=== PATIENT | female | born 1990 | race Caucasian/White ===

== ENCOUNTER 2025-01-26 16:50 | Emergency (ER) | payer MEDICAID, SELFPAY ==
[2025-01-26 17:40] VITALS: BP 107/73; PULSE 94; RESP 18; TEMP 37.3; O2SAT 95; BMI 25.7
--- NOTE | 2025-01-26 18:32 | XR_ITS ---
Examination: CT maxillofacial, without intravenous contrast. 2-D sagittal reconstructions. 3-D reconstructions. Date and time of exam:January 26, 20252006 hours INDICATION: Seizure today patient fell with injury of the face, facial pain CTDI: vol (mGy):21 DLP: (mGycm):344 Technique: Multiple axial images of maxillofacial region, 3.0 mm slice thickness. 2-D sagittal and coronal reconstructions. 3-D reconstructions. Low dose protocols were performed. One or more of the following dose reduction techniques were used; automated exposure control, adjustment of the mA and/or KV according to patient size, use of iterative reconstruction technique. Findings: Frontal bone frontal sinuses intact Orbital rims intact No nasal bone fracture. No depression zygomatic arches. Maxilla and mandible are intact IMPRESSION: No acute fracture.
--- NOTE | 2025-01-26 18:32 | XR_ITS ---
Examination: CT brain head without contrast. 2-D sagittal coronal reconstructions Date and time of exam:January 26, 20252001 hours INDICATIONS: Seizure today with injury to the face, head pain and facial pain CTDI: vol (mGy):47 DLP: (mGycm):959 Technique: Multiple CT axial sections of the brain have been obtained, 5 mm slice thickness. Contrast has not been administered. 2-D sagittal, coronal reconstructions have been obtained Low dose protocols were performed. One or more of the following dose reduction techniques were used; automated exposure control, adjustment of the mA and/or KV according to patient size, use of iterative reconstruction technique. Findings: No significant ventricular enlargement. Intra-axial or extra-axial hemorrhage density is not seen. No mass effect or midline shift Basal cisterns are not remarkable. Fourth ventricle is midline. Cranial vault intact. Impression: Negative for acute hemorrhage, mass effect or midline shift
--- NOTE | 2025-01-26 18:33 | PD.EDRME ---
Rapid Medical Screening Exam [facility] Arrival date/time: 01/26/25 16:50 34F with no significant PMH presents to ED with 2 seizures today lasting about 5 min each time. Patient has been taking her Lamictal as prescribed. Patient fell and hit her face on the stove. Patient still feels out of it. Chief Complaint: Seizure Vital signs: Vital Signs Temperature 99.2 F 01/26/25 17:40 Pulse Rate 94 01/26/25 17:40 Respiratory Rate 18 01/26/25 17:40 Blood Pressure 107/73 01/26/25 17:40 Pulse Oximetry (%) 95 01/26/25 17:40 Oxygen Delivery Method Room Air 01/26/25 17:40
[2025-01-26 18:50] LABS: Lactate (Lactic Acid) 0.6 mMol/L (0.4-2.0)
[2025-01-26 18:58] LABS: Basophils # (Auto) 0.1 Thou/mm3 (0.0-0.2); Basophils % (Auto) 1 % (0-2.5); Eosinophils # (Auto) 0.2 Thou/mm3 (0.0-0.5); Eosinophils % (Auto) 2 % (0-10); Hematocrit 40.2 % (36.0-46.0); Hemoglobin 13.2 g/dL (12.0-16.0); Immature Granulocytes Auto 0.02 Thou/mm3 (0.00-0.00); Lymphocytes # (Auto) 2.8 Thou/mm3 (1.0-4.8); Lymphocytes % (Auto) 27 % (10-50); Mean Corpuscular HGB Conc 32.8 g/dl (31.0-37.0); Mean Corpuscular Hemoglobin 29.8 pg (25.0-35.0); Mean Corpuscular Volume 91 fL (80-100); Monocytes # (Auto) 0.5 Thou/mm3 (0.0-0.8); Monocytes % (Auto) 5 % (0-12); Neutrophils # (Auto) 6.7 Thou/mm3 (1.8-7.7); Neutrophils % (Auto) 65 % (37-80); Nucleated Red Blood Cell # 0.00 Thou/mm3 (0.00-0.00); Nucleated Red Blood Cell % 0 /100 WBC (0); Platelet Count 259 Thou/mm3 (140-440); RDW Standard Deviation 45.8 fL (36.4-46.3); Red Blood Count 4.43 Miln/mm3 (4.00-5.20); White Blood Count 10.2 Thou/mm3 (3.6-11.0)
[2025-01-26 19:14] LABS: Alanine Aminotransferase < 7 U/L (10-49); Albumin, Serum 4.5 gm/dL (3.5-5.0); Albumin/Globulin Ratio 1.9 (1.2-2.2); Alcohol, Blood Medical < 3.0 mg/dL (0-10.0); Alkaline Phosphatase 61 U/L (46-116); Anion Gap 5 (7-16); Aspartate Amino Transferase 13 U/L (0-34); BUN/Creatinine Ratio 8 Ratio (12-20); Bilirubin,Total < 0.2 mg/dL (0.3-1.2); Blood Urea Nitrogen 6 mg/dL (9-23); Calcium 9.9 mg/dL (8.3-10.6); Calcium (Corrected) 9.9 mg/dL (8.5-10.1); Carbon Dioxide 28.8 mMol/L (20.0-31.0); Chloride 109 mMol/L (98-107); Creatinine (Component) 0.8 mg/dL (0.6-1.3); Estimated Creatinine Clearance 91.2 mL/min (>60); Globulin 2.4 gm/dL (2.3-3.5); Glucose 104 mg/dL (74-106); Osmolality,Calculated 282 (275-295); Potassium 4.1 mMol/L (3.4-5.1); Sodium 143 mMol/L (136-145); Total Protein 6.9 gm/dL (5.7-8.2); eGFR > 60 See Note
[2025-01-26 19:40] LABS: Collection Type, Urine Clean Catch; RBC,Urine 0 /hpf (0-3); WBC,Urine 0 /hpf (0-5)
[2025-01-26 20:04] LABS: Bilirubin,Urine Negative (Negative); Blood,Urine Negative (Negative); Clarity,Urine Turbid (Clear/Hazy); Color,Urine Yellow (Lt Yel-Yel); Culture Indicated,Urine Not Indicated; Glucose, Urine Negative (Negative); Hyaline Casts,Urine < 1 /hpf (0-1); Ketones,Urine Trace (Negative); Leukocyte Esterase,Urine Negative (Negative); Nitrite,Urine Negative (Negative); PH,Urine 6.0 (5.0-7.0); Protein,Urine Trace (Neg - Trace); Specific Gravity,Urine 1.024 (1.001-1.035); Squamous Epithelial Cell,Urine 10 /hpf (0-5); Urobilinogen,Urine Negative mg/dL (0.0-1.0)
[2025-01-26 20:12] LABS: HCG Qualitative,Urine Negative
[2025-01-26 21:15] LABS: Amphetamine/Methamp Scrn,U Negative (Negative); Barbiturate Screen,Urine Negative (Negative); Benzodiazepines Screen,Urine Negative (Negative); Benzoylecgonine Screen, Ur Negative (Negative); Fentanyl Screen,Urine Negative (Negative); Opiate Screen,Urine Positive (Negative); THC Screen,Urine Positive (Negative)
[2025-01-26 22:34] VITALS: BP 129/85; PULSE 57; RESP 18; TEMP 36.7; O2SAT 97
--- NOTE | 2025-01-26 22:57 | PD.EDADULT ---
ED General RME/HPI General Chief complaint: Seizure Stated complaint: SEIZURE Arrival date/time: 01/26/25 16:50 RME / HPI RME / HPI narrative: 01/26/25 16:50 34F with no significant PMH presents to ED with 2 seizures today lasting about 5 min each time. Patient has been taking her Lamictal as prescribed. Patient fell and hit her face on the stove. Patient still feels out of it. 34-year-old female with past medical history of seizures currently on Lamictal comes into the ED with chief complaint of seizure-like activity twice today. Patient states that she had 2 episodes of seizures with the first 1 lasting around 5 minutes and the second 1 lasting a little bit last. Patient seizure-like activity was witnessed by the patient's who found her on the floor and patient did hit her left side temporal area. Patient mentions she did have urinary incontinence, but no bowel incontinence. Patient also states that she does have some body pain, but otherwise denies having any chest pain, shortness of breath, nausea, vomiting, change in bowel mood, burning sensation during urination, or any previous seizures prior to today. She states that she has not been hydrating herself too well. Patient mentioned that her primary care physician that increased her Lamictal dose around 6 months ago, but she is unaware of what the reason was. Patient has not seen the neurologist for 1 year. Otherwise no other complaints. Admits marijuana use, denies any smoking cigarettes or alcohol or other illicit drugs Related Data Home Medications ?Medication ?Instructions ?Recorded ?Confirmed tramadol 50 mg tablet 50 mg PO BID 04/08/21 04/08/21 Previous Rx's ?Medication ?Instructions ?Recorded azithromycin 250 mg tablet See Rx Instructions PO .COMPLEX #6 04/08/21 tabs cyclobenzaprine 10 mg tablet 10 mg PO TID #10 tabs 06/06/21 meloxicam 7.5 mg tablet 7.5 mg PO QDAY #10 tabs 06/06/21 ciprofloxacin HCl 500 mg tablet 500 mg PO Q12H #14 tabs 02/01/22 (Cipro) Allergies Allergy/AdvReac Type Severity Reaction Status Date / Time cyclobenzaprine (From Allergy Severe Anaphylaxis Verified 02/01/22 19:32 Flexeril) metoclopramide HCl Allergy Severe THROAT Verified 02/01/22 19:32 CLOSES ondansetron Allergy Severe RASH,VOMITI Verified 02/01/22 19:32 NG,FEVER Penicillins Allergy Mild Rash Verified 02/01/22 19:32 promethazine (From Phenergan) Allergy Mild Vomiting Verified 02/01/22 19:32 Review of Systems Review of Systems Systems Reviewed: All systems reviewed, normal except as documented Past Medical History Past Medical History NEUROLOGIC: Positive Neurological Disorders, Seizures, Spina Bifida, Migraine and Head Trauma CARDIAC: Negative Cardiac Disorders or Congestive Heart Failure RESPIRATORY: Negative Chronic Obstructive Pulmonary Disease (COPD) GASTROINTESTINAL: Negative Gastrointestinal Disorders GENITOURINARY: Positive Genitourinary Disorders; Negative Renal Disease REPRODUCTIVE: Positive Previous Pregnancies MUSCULOSKELETAL: Positive Musculoskeletal Disorders ENT: Positive Head Trauma ENDOCRINE: Negative Endocrine Disorders, Diabetes Mellitus Type 1 or Diabetes Mellitus Type 2 HEMATOLOGIC: Negative Blood Disorders OTHER HISTORY: Positive Chicken Pox; Negative Hospitalization, Autoimmune Disease, Shingles, Falls, Blood Transfusions, Blood Transfusion Reaction, Anesthesia Reactions, Chemotherapy, Radiation Therapy, MRSA or Cancer Family History FAMILY HISTORY: Positive Family Psychiatric Problems, Family Respiratory Disorders, Family Cardiac Disorders, Family Gastrointestinal Problems, Family Cancer and Family Surgery; Negative Family Anesthesia Reaction Surgical History SURGICAL: Positive Abdominal Surgery and Tubal Ligation; Negative Cardiac Surgery, Ear Surgery, Nephrectomy or Joint Replacement Social History SMOKING STATUS: Light (< 1 pack/day) SUBSTANCE USE: marijuana Travel History EBOLA RISK: No ED Exam Narrative Physical exam: Gen: A&O X 3, NAD HEENT: NCAT, EOMI, Pupils reactive JAY, not icteric. External ears normal. No rhinorrhea. Moist mucous membranes. No tongue bitting. Neck: Supple, full range of motion, no observable masses, No meningeal sign. Lungs: No Respiratory distress, clear bilateral. CV: RRR, no murmurs. Abdomen: Soft, nondistended, No rebound tenderness. MSK: No joint swelling, no redness, peripheral pulses presents, lumbar with no edema. Skin: No rashes, petechiae, lesions.. Neuro: No focal neurological deficits appreciated, sensory and motor intact. Psych: Cooperative, appropriate mood and effect. Course Quality Measures none Orders Category Date Time Status CT facial bones wo con Stat Exams 01/26/25 18:[address] head/brain wo con Stat Exams 01/26/25 18:32 Completed Alcohol, Blood Medical Stat Lab 01/26/25 18:42 Completed CBC Stat Lab 01/26/25 18:42 Completed CMP [Comprehensive Metabolic Panel] Stat Lab 01/26/25 18:42 Completed Drug Screen,Urine Stat Lab 01/26/25 19:21 Completed HCG Qualitative,Urine Stat Lab 01/26/25 19:21 Completed Lactate (Lactic Acid) Stat Lab 01/26/25 18:42 Completed Urinalysis, C/S if Indicated Stat Lab 01/26/25 19:21 Completed Ketorolac Inj [Toradol Inj] Med 01/26/25 22:54 Discontinued 30 mg IM X1 ONE Vital Signs Vital signs: Vital Signs Temperature 99.2 F 01/26/25 17:40 Pulse Rate 94 01/26/25 17:40 Respiratory Rate 18 01/26/25 17:40 Blood Pressure 107/73 01/26/25 17:40 Pulse Oximetry (%) 95 01/26/25 17:40 Oxygen Delivery Method Room Air 01/26/25 17:40 Discharge Plan Plan Patient Disposition: HOME (Self Care) Prescriptions/Referrals Prescriptions/Med Rec: No Action ciprofloxacin HCl [Cipro] 500 mg tablet 500 mg PO Q12H Qty: 14 0RF tramadol 50 mg Tablet 50 mg PO BID azithromycin 250 mg tablet See Rx Instructions .ROUTE .COMPLEX Qty: 6 0RF Rx Instructions: take 500 mg today (day 1), then 250 mg for 4 days (days 2-5) meloxicam 7.5 mg tablet 7.5 mg PO QDAY Qty: 10 0RF cyclobenzaprine 10 mg tablet 10 mg PO TID Qty: 10 0RF Referrals: No Primary/Family,Physician [Primary Care Provider] - In 1 week Problem List Clinical Impression: Seizure Patient/Caregiver Discharge Instructions Other Activity Instructions:: Follow-up primary care physician within the next 1 to 2 days Follow-up with your neurologist within the next 2 or 3 days Recommend to continue taking your same dose Lamictal for now. Would recommend to keep well-hydrated at all times Recommend to decrease marijuana use Come back to the ED if seizure recur, symptoms persist or worsen. Education Materials: ED Seizure, Recurrent (Adult) Print Language: Mauritian Stand Alone Forms: Britt Award Info., Patient Portal Info Letter MDM Narrative MDM hospital course: Patient was seen and evaluated upon arrival to the room by myself. Diagnostic labs and imaging were reviewed prior to discussing with the patient. Patient's urine drug screen was positive for opiates and marijuana, this could have decreased patient's seizure threshold as well as patient has not been hydrating well. Otherwise head CT and facial CT were unremarkable and did not show any fractures or intracranial hemorrhage. At this time we will discharge patient back home with close follow-up with primary care physician and neurologist and on the same dose of Lamictal. Patient agrees with plan. Case disclosed with Attending Dr. Giovanni Norman PGY2 Disclaimer: Even though this this note was dictated by speech recognition and even though it was carefully revised there may still be minor errors in artificial snow making machine operator due to voice recognition software. Medication Administration(s) Medication Administration History Discontinued Medications Ketorolac Tromethamine (Ketorolac Inj 60 Mg/2 Ml Vial) 30 mg IM X1 ONE Stop: 01/26/25 22:55 Last Admin: 01/26/25 23:06 Dose: 30 mg
[2025-01-26] MEDS: KETOROLAC INJ 60 MG/2 ML VIAL 30 MG IM (23:06)
== END 2025-01-26 23:10 | disposition home or self-care (01) ==
PROVIDERS: Physician Assistant; Emergency Provider Emergency Medicine
DX: R56.9 Unspecified convulsions (principal)
CPT/HCPCS: 36415; 70450; 70486; 80053; 80307; 80320; 81001; 81025; 83605; 85025; 96372; 99283; J1885; G0480

== ENCOUNTER 2025-01-28 10:17 | Emergency (ER) | payer MEDICAID, SELFPAY ==
[2025-01-28 10:18] VITALS: BMI 24.3
[2025-01-28 10:39] VITALS: BP 122/75; PULSE 57; RESP 18; TEMP 36.8; O2SAT 96
--- NOTE | 2025-01-28 10:52 | PD.EDADULT ---
ED General RME/HPI General Chief complaint: Extremity Problem,Nontraumatic Stated complaint: SPIDER BITE TO RIGHT POSTERIOR LEG Time Seen by Provider: 01/28/25 10:47 Arrival date/time: 01/28/25 10:17 CC: The pain to the right leg HPI ongoing for the past 2 days, patient states she thinks she was bit by a spider the back of the leg denies numbness or tingling fever chills nausea vomiting patient states she has ring of ecchymosis in various stages of resolution. Patient has a history of seizure disorder and had multiple seizures at the time of the incident. Patient denies any other symptoms no OTC medicines taken for it. Related Data Home Medications ?Medication ?Instructions ?Recorded ?Confirmed tramadol 50 mg tablet 50 mg PO BID 04/08/21 04/08/21 Previous Rx's ?Medication ?Instructions ?Recorded azithromycin 250 mg tablet See Rx Instructions PO .COMPLEX #6 04/08/21 tabs cyclobenzaprine 10 mg tablet 10 mg PO TID #10 tabs 06/06/21 meloxicam 7.5 mg tablet 7.5 mg PO QDAY #10 tabs 06/06/21 ciprofloxacin HCl 500 mg tablet 500 mg PO Q12H #14 tabs 02/01/22 (Cipro) Allergies Allergy/AdvReac Type Severity Reaction Status Date / Time cyclobenzaprine (From Allergy Severe Anaphylaxis Verified 01/28/25 10:18 Flexeril) metoclopramide HCl Allergy Severe THROAT Verified 01/28/25 10:18 CLOSES ondansetron Allergy Severe RASH,VOMITI Verified 01/28/25 10:18 NG,FEVER Penicillins Allergy Mild Rash Verified 01/28/25 10:18 promethazine (From Phenergan) Allergy Mild Vomiting Verified 01/28/25 10:18 Review of Systems Review of Systems Narrative Review of Systems: GEN: No fever, no chills, no weight loss EYES: No discharge, no visual changes, no pain HEENT: No ear pain, no congestion, no sore throat PULM: No shortness of breath, no cough, no congestion CV: No chest pain, no dyspnea on exertion, no palpitations GI: No nausea, no vomiting, no diarrhea, no pain, no constipation : No frequency, no urgency, no dysuria MUSC/SKEL: No joint pain, no back pain SKIN: Ecchymosis ring to the back of the leg no rash PSYCH: No hallucinations, no depression HEME/LYMPH: No easy bleeding or bruising tendencies NEURO: No weakness, no headache ED Exam Narrative Physical exam: [General: Not in any acute distress Head normocephalic HEENT: Within acceptable limits Neck is supple nontender Chest equal chest rise nontender to palpation Respiratory: Clear to auscultation no wheezes crackles or rubs CV: Rate rhythm is regular no murmurs rubs or clicks Abdomen is soft nontender no masses positive bowel sounds all 4 quadrants Back: No CVA tenderness no spinous process tenderness from cervical spine thoracic and lumbar spine Skin: Small puncture site to the calf of the right leg with a circular ecchymotic region around it in stages of resolution. No streaking or erythema. Intact no petechiae rash induration ulceration or crepitus Extremities: Moving all extremity against resistance cap refill less than 2 seconds neurosensory intact Neuro: Awake alert oriented x3 Glascow coma 15 no focal deficits] Course Quality Measures none Vital Signs Vital signs: Vital Signs Temperature 98.2 F 01/28/25 10:39 Pulse Rate 57 L 01/28/25 10:39 Respiratory Rate 18 01/28/25 10:39 Blood Pressure 122/75 01/28/25 10:39 Pulse Oximetry (%) 96 01/28/25 10:39 Oxygen Delivery Method Room Air 01/28/25 10:39 Discharge Plan Plan Patient Disposition: HOME (Self Care) Patient condition on transfer: Stable Prescriptions/Referrals Prescriptions/Med Rec: No Action ciprofloxacin HCl [Cipro] 500 mg tablet 500 mg PO Q12H Qty: 14 0RF tramadol 50 mg Tablet 50 mg PO BID azithromycin 250 mg tablet See Rx Instructions .ROUTE .COMPLEX Qty: 6 0RF Rx Instructions: take 500 mg today (day 1), then 250 mg for 4 days (days 2-5) meloxicam 7.5 mg tablet 7.5 mg PO QDAY Qty: 10 0RF cyclobenzaprine 10 mg tablet 10 mg PO TID Qty: 10 0RF Referrals: Art Gillis MD [Physician] - In 1 week Problem List Clinical Impression: Insect bite Patient/Caregiver Discharge Instructions Education Materials: ED Insect Bite Print Language: Vietnamese Stand Alone Forms: Britt Award Info., Work/School Release, Patient Portal Info Letter PA/MATERIAL ENGINEER Supervising Physician PA/MATERIAL ENGINEER Supervising Physician: Collins El ENP
== END 2025-01-28 11:20 | disposition home or self-care (01) ==
LOC: SERX 11:02
PROVIDERS: Emergency Provider Family Medicine; PCP Pediatrics
DX: S80.861A Insect bite (nonvenomous), right lower leg, initial encounter (principal); W57.XXXA Bitten or stung by nonvenomous insect and other nonvenomous arthropods, initial encounter
CPT/HCPCS: 99282

== ENCOUNTER 2025-02-10 19:46 | Emergency (ER) | payer MEDICAID, SELFPAY ==
[2025-02-10 19:49] VITALS: BMI 24.3
--- NOTE | 2025-02-10 20:21 | PC.NURSE ---
called for pt from lobby/outside, no answerx1@ 2016
--- NOTE | 2025-02-10 20:29 | PC.NURSE ---
CALLED FOR PT FROM LOBBY/OUTSIDE, NO ANSWERX2 @[phone]
--- NOTE | 2025-02-10 21:06 | PC.NURSE ---
CALLED FOR PT FROM LOBBY/OUTSIDE, NO ANSWERX3@ [phone]
== END 2025-02-10 21:31 | disposition left against medical advice (07) ==
LOC: SERX 20:47
PROVIDERS: Emergency Provider Emergency Medicine
DX: Z53.21 Procedure and treatment not carried out due to patient leaving prior to being seen by health care provider (principal)
CPT/HCPCS: 99281

== ENCOUNTER 2025-02-21 13:02 | Emergency (ER) | payer MEDICAID, SELFPAY ==
[2025-02-21 13:25] VITALS: BP 106/69; PULSE 107; RESP 16; TEMP 36.7; O2SAT 97
--- NOTE | 2025-02-21 13:35 | XR_ITS ---
Examination: CT abdomen with intravenous contrast CT pelvis with intravenous contrast 2-D coronal reconstructions 2-D sagittal reconstructions Date and time of exam:February 21, 2025 1536 hours, comparison 03/10/2022 INDICATIONS: Rectal pain today, pain and swelling around the vagina one week. CTDI: vol (mGy) 6.97 DLP: (mGycm) 402 Technique: Multiple axial sections of the abdomen and pelvis have been obtained. 64 slice high-resolution scanner used. 3 mm axial sections have been obtained, post intravenous injection 60 cc [id number] 2-D sagittal, coronal reconstructions obtained. Low dose protocols were performed. One or more of the following dose reduction techniques were used; automated exposure control, adjustment of the mA and/or KV according to patient size, use of iterative reconstruction technique. Findings: No focal liver or splenic lesion Contracted gallbladder No pancreatic or adrenal mass No renal or ureteral calculi, no hydronephrosis Aorta normal size Normal appendix No bowel obstruction No diverticulitis Absent uterus No bladder mass or bladder calculi Inflammation in the perineal region with tiny air densities, best seen on sagittal image 81 and coronal image 47 measuring 4.3 x 2.4 cm IMPRESSION: Infectious mass in the perineal region, 4.3 x 2.4 cm, recommend pelvic sonography follow-up
--- NOTE | 2025-02-21 13:36 | PD.EDRME ---
Rapid Medical Screening Exam RME Arrival date/time: 02/21/25 13:02 34-year-old female with no known medical history presents to the emergency room with a chief complaint of an abscess between the vagina and the rectum x 1 week I have greeted and performed a focused initial assessment of this patient. A comprehensive ED assessment and evaluation of the patient, analysis of all test results, and completion of the medical decision making process will be conducted by additional ED providers. Chief Complaint: Skin/Abscess/Foreign Body Time Seen by Provider: 02/21/25 13:24 Vital signs: Vital Signs Temperature 98.0 F 02/21/25 13:25 Pulse Rate 107 H 02/21/25 13:25 Respiratory Rate 16 02/21/25 13:25 Blood Pressure 106/69 02/21/25 13:25 Pulse Oximetry (%) 97 02/21/25 13:25 Oxygen Delivery Method Room Air 02/21/25 13:25 Vital signs reviewed by provider: Yes
[2025-02-21 14:41] LABS: Basophils # (Auto) 0.1 Thou/mm3 (0.0-0.2); Basophils % (Auto) 1 % (0-2.5); Eosinophils # (Auto) 0.3 Thou/mm3 (0.0-0.5); Eosinophils % (Auto) 3 % (0-10); Hematocrit 39.0 % (36.0-46.0); Hemoglobin 13.1 g/dL (12.0-16.0); Immature Granulocytes Auto 0.02 Thou/mm3 (0.00-0.00); Lymphocytes # (Auto) 3.5 Thou/mm3 (1.0-4.8); Lymphocytes % (Auto) 36 % (10-50); Mean Corpuscular HGB Conc 33.6 g/dl (31.0-37.0); Mean Corpuscular Hemoglobin 30.5 pg (25.0-35.0); Mean Corpuscular Volume 91 fL (80-100); Monocytes # (Auto) 0.6 Thou/mm3 (0.0-0.8); Monocytes % (Auto) 6 % (0-12); Neutrophils # (Auto) 5.3 Thou/mm3 (1.8-7.7); Neutrophils % (Auto) 55 % (37-80); Nucleated Red Blood Cell # 0.00 Thou/mm3 (0.00-0.00); Nucleated Red Blood Cell % 0 /100 WBC (0); Platelet Count 253 Thou/mm3 (140-440); RDW Standard Deviation 45.9 fL (36.4-46.3); Red Blood Count 4.29 Miln/mm3 (4.00-5.20); White Blood Count 9.8 Thou/mm3 (3.6-11.0)
[2025-02-21 14:49] LABS: HCG,Qualitative Serum Negative
[2025-02-21 14:55] LABS: Alanine Aminotransferase < 7 U/L (10-49); Albumin, Serum 4.1 gm/dL (3.5-5.0); Albumin/Globulin Ratio 1.7 (1.2-2.2); Alkaline Phosphatase 65 U/L (46-116); Anion Gap 9 (7-16); Aspartate Amino Transferase 11 U/L (0-34); BUN/Creatinine Ratio 9 Ratio (12-20); Bilirubin,Total 0.2 mg/dL (0.3-1.2); Blood Urea Nitrogen 7 mg/dL (9-23); Calcium 9.5 mg/dL (8.3-10.6); Calcium (Corrected) 9.5 mg/dL (8.5-10.1); Carbon Dioxide 30.6 mMol/L (20.0-31.0); Chloride 105 mMol/L (98-107); Creatinine (Component) 0.8 mg/dL (0.6-1.3); Estimated Creatinine Clearance 82.7 mL/min (>60); Globulin 2.4 gm/dL (2.3-3.5); Glucose 84 mg/dL (74-106); Lipase 34 U/L (12-53); Osmolality,Calculated 285 (275-295); Potassium 3.6 mMol/L (3.4-5.1); Sodium 145 mMol/L (136-145); Total Protein 6.5 gm/dL (5.7-8.2); eGFR > 60 See Note
--- NOTE | 2025-02-21 15:10 | PC.NURSE ---
CT placed senior technical trainer informed [id number]
[2025-02-21] MEDS: HYDROcodone/APAP 5/325 TABLET 1 TAB PO (15:11)
--- NOTE | 2025-02-21 16:54 | EDNOTE_ITS ---
ED General RME/HPI General Chief complaint: Skin/Abscess/Foreign Body Stated complaint: ABSCESS BETWEEN VAGINA & RECTUM Time Seen by Provider: 02/21/25 13:24 Arrival date/time: 02/21/25 13:02 CC: Left rectal and NEEMA area pain HPI ongoing for 1 week denies fever chills shortness of breath. Sexually active denies any vaginal discharge painful urination bloody urination diarrhea or constipation. No prior history of similar events. Patient states she had a hysterectomy in March 2024. Patient is awake alert oriented nontoxic-appearing in mild discomfort but not in any acute distress. RME / HPI RME / HPI narrative: 02/21/25 13:02 34-year-old female with no known medical history presents to the emergency room with a chief complaint of an abscess between the vagina and the rectum x 1 week I have greeted and performed a focused initial assessment of this patient. A comprehensive ED assessment and evaluation of the patient, analysis of all test results, and completion of the medical decision making process will be conducted by additional ED providers. Related Data Home Medications ?Medication ?Instructions ?Recorded ?Confirmed tramadol 50 mg tablet 50 mg PO BID 04/08/21 Previous Rx's ?Medication ?Instructions ?Recorded azithromycin 250 mg tablet See Rx Instructions PO .COM PLEX #6 04/08/21 tabs cyclobenzaprine 10 mg tablet 10 mg PO TID #10 tabs meloxicam 7.5 mg tablet 7.5 mg PO QDAY #10 tabs 05/17 08/06 ciprofloxacin HCl 500 mg tablet 500 mg PO Q12H #14 tab s 02/01/22 (Cipro) clindamycin HCl 300 mg capsule 300 mg PO TID #21 caps 02/21/25 meloxicam 7.5 mg tablet 7.5 mg PO QDAY #10 tabs 02/07 Allergies Allergy/AdvReac Type Severity Reaction Status Date / Time cyclobenzaprine (From Allergy Severe Anaphylaxis Verified 02/21/25 13:06 Flexeril) metoclopramide HCl Allergy Severe THROAT Verified 02/21/25 13:06 CLOSES ondansetron Allergy Severe RASH,VOMITI Verified 02/21/25 13:06 NG,FEVER Penicillins Allergy Mild Rash Verified 02/21/25 13:06 promethazine (From Phenergan) Allergy Mild Vomiting Verified 02/21/25 13:06 Review of Systems Review of Systems Narrative Review of Systems: GEN: No fever, no chills, no weight loss EYES: No discharge, no visual changes, no pain HEENT: No ear pain, no congestion, no sore throat PULM: No shortness of breath, no cough, no congestion CV: No chest pain, no dyspnea on exertion, no palpitations GI: No nausea, no vomiting, no diarrhea, no pain, no constipation : No frequency, no urgency, no dysuria MUSC/SKEL: No joint pain, no back pain SKIN: Left perianal pain no rash PSYCH: No hallucinations, no depression HEME/LYMPH: No easy bleeding or bruising tendencies NEURO: No weakness, no headache Past Medical History Past Medical History NEUROLOGIC: Positive Neurological Disorders, Seizures, Spina Bifida, Migraine and Head Trauma CARDIAC: Negative Cardiac Disorders or Congestive Heart Failure RESPIRATORY: Negative Chronic Obstructive Pulmonary Disease (COPD) or Asthma GASTROINTESTINAL: Negative Gastrointestinal Disorders GENITOURINARY: Positive Genitourinary Disorders; Negative Renal Disease REPRODUCTIVE: Positive Previous Pregnancies MUSCULOSKELETAL: Positive Musculoskeletal Disorders ENT: Positive Head Trauma ENDOCRINE: Negative Endocrine Disorders, Diabetes Mellitus Type 1 or Diabetes Mellitus Type 2 HEMATOLOGIC: Negative Blood Disorders or Sickle Cell Disease OTHER HISTORY: Positive Chicken Pox; Negative Hospitalization, Autoimmune Disease, Shingles, Falls, Blood Transfusions, Blood Transfusion Reaction, Anesthesia Reactions, Chemotherapy, Radiation Therapy, MRSA or Cancer Family History FAMILY HISTORY: Positive Family Psychiatric Problems, Family Respiratory Dis orders, Family Cardiac Disorders, Family Gastrointestinal Problems, Family Cancer and Family Surgery; Negative Family Anesthesia Reaction Surgical History SURGICAL: Positive Abdominal Surgery and Tubal Ligation; Negative Cardiac Surgery, Ear Surgery, Nephrectomy or Joint Replacement Social History SMOKING STATUS: Current every day smoker SUBSTANCE USE: marijuana ED Exam Narrative Physical exam: [General: Not in any acute distress Head normocephalic HEENT: Within acceptable limits Neck is supple nontender Chest equal chest rise nontender to palpation Respiratory: Clear to auscultation no wheezes crackles or rubs CV: Rate rhythm is regular no murmurs rubs or clicks Abdomen is distended secondary to body habitus soft nontender no masses positive bowel sounds all 4 quadrants Back: No CVA tenderness no spinous process tenderness from cervical spine thor acic and lumbar spine Skin: Perianal area: Left medial inner upper thigh lateral to the labia majora small area of subtle erythema tender to palpation no firm indurated center no open lesions no exudate. No streaking in the area. Otherwise skin is intact no petechiae rash induration ulceration or crepitus Extremities: Moving all extremity against resistance cap refill less than 2 seconds neurosensory intact Neuro: Awake alert oriented x3 Glascow coma 15 no focal deficits] Course Quality Measures none Orders Category Date Time Status CT Screening NOW Care 02/21/25 13:36 Completed Saline [Insert IV] NOW Care 02/21/25 16:[address] abdomen pelvis w con Stat Exams 02/21/25 13:35 Completed CBC Stat Lab 02/21/25 14:11 Completed CMP [Comprehensive Metabolic Panel] Stat Lab 02/21/25 14:11 Completed HCG,Qualitative Serum Stat Lab 02/21/25 14:11 Completed Lipase Stat Lab 02/21/25 14:11 Completed Clindamycin 900Mg Ivpb [Cleocin/D5w Ivpb] 900 mg Med 02/21/25 16:53 Discontinued Pre-Mixed [Pre-mixed Bag] 1 bag IV X1 HYDROcodone*/APAP 5/325 [[place] 5/325] Med 02/21/25 15:08 Discontinued 1 tab PO X1 ONE oxyCODONE/APAP 5/325 [Percocet 5/325] Med 02/21/25 17:00 Discontinued 1 tab PO X1 ONE Vital Signs Vital signs: Vital Signs Temperature 98.0 F 02/21/25 13:25 Pulse Rate 107 H 02/21/25 13:25 Respiratory Rate 16 02/21/25 13:25 Blood Pressure 106/69 02/21/25 13:25 Pulse Oximetry (%) 97 02/21/25 13:25 Oxygen Delivery Method Room Air 02/21/25 13:25 Discharge Plan Plan Patient Disposition: HOME (Self Care) Patient condition on transfer: Stable Prescriptions/Referrals Prescriptions/Med Rec: New clindamycin HCl 300 mg capsule 300 mg PO TID Qty: 21 0RF meloxicam 7.5 mg tablet 7.5 mg PO QDAY Qty: 10 0RF No Action ciprofloxacin HCl [Cipro] 500 mg tablet 500 mg PO Q12H Qty: 14 0RF tramadol 50 mg Tablet 50 mg PO BID azithromycin 250 mg tablet See Rx Instructions .ROUTE .COMPLEX Qty: 6 0RF Rx Instructions: take 500 mg today (day 1), then 250 mg for 4 days (days 2-5) meloxicam 7.5 mg tablet 7.5 mg PO QDAY Qty: 10 0RF cyclobenzaprine 10 mg tablet 10 mg PO TID Qty: 10 0RF Referrals: Diallo Lewis NP [Primary Care Provider] - In 1 week Carol Bustos MD [Physician, General Surgery] - In 1 week Problem List Clinical Impression: Cellulitis of perianal area Patient/Caregiver Discharge Instructions Education Materials: ED ABSCESS Neema-Anal Abx only Additional Instructions: Take the medications as prescribed if there is worsening of symptoms return to the emergency room otherwise follow-up with Dr. Jenkins listed above. Print Language: Malay Stand Alone Forms: [employer] Award Info., Work/School Release, Patient Portal Info Letter LORY/JAKE Supervising Physician LORY/JAKE Supervising Physician: Collins El ENP [facility] Clinical Information Provided by patient Medical Records Reviewed [facility] Meds/Rx Considered, not Ordered None Labs/Rad/Tests considered, not Ordered None Chronic Illness/Social Conditions which may negatively complicate care or outcome(s)-explain: None or not applicable Add or document further as needed: Hysterectomy in March 2024 Lab Interpretation Labs: interpreted by or Lab(s) interpretation(s): CBC shows no acute leukocytosis anemia thrombocytopenia CMP shows no significant electrolyte imbalances renal impairment transaminitis or T. bili elevation Lipase is normal Quantitative hCG is negative Imaging Imaging interpretation: interpreted by me Provider imaging interpretation(s): CT is interpreted by me read by radiology shows a perineal mass of 4 x 2 cm no deform or defined abscess area. Radiology reports / interpretation(s): Based on the CT report and the physical examination do not feel this is a cellulitis that can be opened or drained. This patient will be started on antibiotics and to follow-up with outpatient surgery for follow-up. Medication Administration(s) Medication Administration History Discontinued Medications Hydrocodone Bitart/Acetaminophen (Hydrocodone/Apap 5/325 Tablet) 1 tab PO X1 ONE Stop: 02/21/25 15:09 Last Admin: 02/21/25 15:11 Dose: 1 tab Documented By: HOLLY Clindamycin Phosphate 900 mg/ (IV Miscellaneous Supplies) 50 mls @ 50 mls/hr IV X1 ONE Stop: 02/21/25 17:52 Last Infusion: 02/21/25 18:39 Dose: Infused Documented By: Admin: 02/21/25 17:39 Dose: 50 mls/hr Documented By: JIM Oxycodone/Acetaminophen (Oxycodone/Apap 5/325 Tablet) 1 tab PO X1 ONE Stop: 02/21/25 17:01 Last Admin: 02/21/25 17:42 Dose: 1 tab Documented By: JIM
[2025-02-21] MEDS: CLINDAMYCIN 900MG IVPB 900 MG in PRE-MIXED 1 BAG 50 MG IV (17:39)
[2025-02-21 18:07] VITALS: BP 106/78; PULSE 66; RESP 16; TEMP 37.1; O2SAT 97
== END 2025-02-21 18:41 | disposition home or self-care (01) ==
PROVIDERS: Nurse Practitioner Family; Emergency Provider Emergency Medicine; PCP Nurse Practitioner Family
DX: K61.1 Rectal abscess (principal)
CPT/HCPCS: 36415; 74177; 80053; 81001; 83690; 84703; 85025; 96365; 99284; A4649; J0736; Q9967; A9270